=== PATIENT | male | born 1965 | race Caucasian/White ===

== ENCOUNTER 2022-06-28 08:36 | Day surgery (SDC) | payer MEDICAID ==
[2022-06-28] MEDS ORDERED: Lactated Ringers 1,000 ML IV SCH (09:22)
[2022-06-28] MEDS ORDERED: Propofol 200 MG/20 ML SDV ONE (09:25)
[2022-06-28] MEDS ORDERED: fentaNYL 100 MCG/2 ML SDV ONE (09:25)
[2022-06-28] MEDS ORDERED: Midazolam 1 MG/ML 2 ML SDV ONE (09:25)
[2022-06-28] MEDS ORDERED: Sodium Chloride 0.9% 1,000 ML IV SCH (09:30)
== END 2022-06-28 11:30 | disposition home or self-care (01) ==
LOC: JP.SDS 08:36
PROVIDERS: ATTEND Family Medicine
DX: Z12.11 Encounter for screening for malignant neoplasm of colon (principal); K63.5 Polyp of colon; E78.5 Hyperlipidemia, unspecified; Z79.899 Other long term (current) drug therapy; Z88.8 Allergy status to other drugs, medicaments and biological substances
CPT/HCPCS: 45378; J2250; J2704; J3010; J7120